=== PATIENT | female | born 1960 | race Caucasian/White ===

== ENCOUNTER 2022-01-13 06:25 | Inpatient (IN) ==
[2022-01-13] MEDS ORDERED: Celecoxib 100 MG CAPSULE PO ONE (06:30)
[2022-01-13] MEDS ORDERED: Acetaminophen IV 1,000 MG/100 ML BAG IVPB ONE (06:30)
[2022-01-13] MEDS ORDERED: Famotidine 20 MG/2 ML VIAL IVP ONE (06:30)
[2022-01-13] MEDS ORDERED: *HR* FentaNYL (PF) 100 MCG/2 ML VIAL ONE ×2 (06:39→08:20)
[2022-01-13] MEDS ORDERED: *HR* Midazolam HCl 2 MG/2 ML VIAL ONE (06:40)
[2022-01-13] MEDS ORDERED: *HR* Propofol 200 MG/20 ML VIAL IVP ONE (06:40)
[2022-01-13] MEDS ORDERED: Lidocaine -MPF 2% 2 ML VIAL ONE (06:41)
[2022-01-13] MEDS ORDERED: Ondansetron 4 MG/2 ML VIAL ONE (06:41)
[2022-01-13] MEDS ORDERED: Tobramycin Sulf (Sterile) 1.2 GM VIAL ONE (06:47)
[2022-01-13] MEDS ORDERED: Vancomycin 1,000 MG VIAL ONE (06:47)
[2022-01-13] MEDS ORDERED: Ropivacaine/PF 0.5% 30 ML VIAL ONE (06:50)
[2022-01-13] MEDS ORDERED: ROPIVACAINE/PF/NS 0.25% 1 EACH SYRINGE INTRAART ONE (06:51)
[2022-01-13] MEDS ORDERED: CeFAZolin Syr 2,000MG/20 ML 2,000 MG/20 ML SYRINGE IVPB ONE (06:56)
[2022-01-13] MEDS ORDERED: Ringers Solution, Lactated 1,000 ML IVC SCH ×2 (07:00→13:56)
[2022-01-13] MEDS ORDERED: Gentamicin 350 MG in 0.9 % Sodium Chloride 100 ML IVPB ONE (07:00)
[2022-01-13] MEDS ORDERED: TOTAL JOINT MIXTURE (100ML) INTRAART ONE (07:30)
[2022-01-13] MEDS ORDERED: Ondansetron 4 MG/2 ML VIAL IVP PRN ×2 (07:36→13:56)
[2022-01-13] MEDS ORDERED: *HR* HYDROmorphone PF 0.5 MG/0.5 ML SYRINGE IVP PRN (07:36)
[2022-01-13] MEDS ORDERED: *HR* FentaNYL (PF) 100 MCG/2 ML VIAL IVP PRN (07:36)
[2022-01-13] MEDS ORDERED: Tranexamic Acid 1,000 MG/10 ML VIAL ONE ×2 (07:42→08:45)
[2022-01-13] MEDS ORDERED: Povidone-Iodine 45 ML, Sodium Chloride IRRigation 1,000 ML IR ONE (07:45)
[2022-01-13] MEDS ORDERED: Ketamine HCL *QUVA* 50mg (1mL) SYRINGE ONE (08:10)
[2022-01-13] MEDS ORDERED: *HR* Labetalol 20 MG/4 ML SYRINGE IVP ONE (08:25)
[2022-01-13] MEDS ORDERED: Ketorolac 30 MG/ML VIAL IVP PRN (12:21)
[2022-01-13] MEDS ORDERED: Naloxone 0.4 MG/ML INJ IVP PRN (13:56)
[2022-01-13] MEDS ORDERED: MOM Conc 10 ML UD.LIQ PO PRN (13:56)
[2022-01-13] MEDS ORDERED: *HR* Promethazine 25 MG/ML VIAL IM PRN (13:56)
[2022-01-13] MEDS ORDERED: Sennosides 8.6 MG TABLET PO PRN (13:56)
[2022-01-13] MEDS: Ketorolac 30 MG/ML VIAL IVP SCH ×3 (15:55→23:26)
[2022-01-13] MEDS: Ascorbic Acid 500 MG TABLET PO SCH (16:37)
[2022-01-13] MEDS: *HR* OxyCODONE Immed Rel 5 MG TABLET PO PRN ×2 (16:37→23:25)
[2022-01-13] MEDS: CeFAZolin 2 GM/120 ML BAG IVPB SCH ×2 (16:42→23:25)
[2022-01-14] MEDS: Ketorolac 30 MG/ML VIAL IVP SCH ×3 (05:14→18:23)
[2022-01-14 06:51] LABS: Basophils % 0.2 %; Hemoglobin 13.4 g/dL (11.5-15.4); Immature Granulocytes % 0.6 % (0-4); Lymphocytes # 1.3 K/mcL (0.6-4.6); Lymphocytes % 7.3 %; Mean Corpuscular HGB Conc 32.7 g/dL (31.6-35.5); Mean Corpuscular Hemoglobin 29.8 pg (28.0-33.3); Mean Corpuscular Volume 91.1 fL (83.0-100.0); Mean Platelet Volume 10.4 fL (9.4-12.4); Monocytes # 1.3 K/mcL (0.0-1.3); Monocytes % 7.6 %; Neutrophils # 14.9 K/mcL (1.6-8.9); Platelet Count 264 K/mcL (140-400); Red Cell Distribution Width 13.9 % (11.5-14.5); Segmented Neutrophils % 84.3 %; White Blood Count 17.7 K/mcL (4.3-11.1)
[2022-01-14 07:21] LABS: BUN/Creatinine Ratio 19 (6-26); Blood Urea Nitrogen 12 mg/dL (8-23); Calcium 8.8 mg/dL (8.6-10.3); Carbon Dioxide 28 mEq/L (23-29); Chloride 102 mEq/L (98-107); Glucose 126 mg/dL (70-105); Osmolality,Calculated 285 (280-300); Potassium 4.3 mEq/L (3.5-5.1); Sodium 137 mEq/L (136-145); eGFR For African Americans > 60 (> 60); eGFR For Non-African Americans > 60 (> 60)
[2022-01-14] MEDS: Cholecalciferol (D-3) 1,000 UNIT (25MCG) TABLET PO SCH (09:38)
[2022-01-14] MEDS: amLODIPine 5 MG TABLET PO SCH (09:38)
[2022-01-14] MEDS: Multivit/Ca/Min/Fe/FA 1 TAB TABLET PO SCH (09:38)
[2022-01-14] MEDS: CeFAZolin 2 GM/120 ML BAG IVPB SCH ×2 (09:39→16:36)
[2022-01-14] MEDS: Ascorbic Acid 500 MG TABLET PO SCH ×2 (09:44→16:33)
[2022-01-14] MEDS: *HR* OxyCODONE Immed Rel 5 MG TABLET PO PRN ×2 (09:45→16:33)
[2022-01-14] MEDS: Aspirin Enteric Coated 81 MG Tablet PO SCH (12:04)
[2022-01-15] MEDS: CeFAZolin 2 GM/120 ML BAG IVPB SCH ×2 (00:27→09:04)
[2022-01-15] MEDS: Ketorolac 30 MG/ML VIAL IVP SCH ×2 (00:34→06:04)
[2022-01-15 02:13] LABS: Basophils % 0.3 %; Eosinophils # 0.1 K/mcL (0.0-0.6); Eosinophils % 0.7 %; Hematocrit 41.6 % (35.3-44.9); Hemoglobin 13.5 g/dL (11.5-15.4); Immature Granulocytes % 0.5 % (0-4); Lymphocytes # 2.3 K/mcL (0.6-4.6); Lymphocytes % 17.8 %; Mean Corpuscular HGB Conc 32.5 g/dL (31.6-35.5); Mean Corpuscular Hemoglobin 29.7 pg (28.0-33.3); Mean Corpuscular Volume 91.4 fL (83.0-100.0); Mean Platelet Volume 10.6 fL (9.4-12.4); Monocytes # 1.3 K/mcL (0.0-1.3); Monocytes % 10.3 %; Neutrophils # 9.1 K/mcL (1.6-8.9); Platelet Count 246 K/mcL (140-400); Red Blood Count 4.55 M/mcL (3.82-4.97); Segmented Neutrophils % 70.4 %; White Blood Count 12.9 K/mcL (4.3-11.1)
[2022-01-15 02:28] LABS: BUN/Creatinine Ratio 22 (6-26); Blood Urea Nitrogen 15 mg/dL (8-23); Calcium 8.4 mg/dL (8.6-10.3); Carbon Dioxide 30 mEq/L (23-29); Chloride 104 mEq/L (98-107); Glucose 107 mg/dL (70-105); Osmolality,Calculated 291 (280-300); Potassium 4.1 mEq/L (3.5-5.1); Sodium 140 mEq/L (136-145); eGFR For African Americans > 60 (> 60); eGFR For Non-African Americans > 60 (> 60)
[2022-01-15] MEDS: Cholecalciferol (D-3) 1,000 UNIT (25MCG) TABLET PO SCH (09:04)
[2022-01-15] MEDS: Aspirin Enteric Coated 81 MG Tablet PO SCH (09:04)
[2022-01-15] MEDS: Multivit/Ca/Min/Fe/FA 1 TAB TABLET PO SCH (09:04)
[2022-01-15] MEDS: *HR* OxyCODONE Immed Rel 5 MG TABLET PO PRN (09:05)
[2022-01-15] MEDS: amLODIPine 5 MG TABLET PO SCH (09:05)
[2022-01-15] MEDS: Ascorbic Acid 500 MG TABLET PO SCH (09:05)
[2022-01-15 11:20] VITALS: BP 137/77; PULSE 72; TEMP 98.2; O2SAT 97
== END 2022-01-15 14:56 | disposition other institution (70) | DRG 468 ==
LOC: SDCAOSI 06:25 → 4WAOSI 13:09
PROVIDERS: ADMIT Orthopaedic Surgery; ATTEND Orthopaedic Surgery